=== PATIENT | male | born 1985 | race Caucasian/White ===

== ENCOUNTER 2018-04-19 14:06 | Emergency (ER) | payer BC, OTHER ==
[2018-04-19 14:23] VITALS: BP 131/66; PULSE 84; RESP 16; TEMP 98.6
[2018-04-19] MEDS ORDERED: PROPARACAINE 0.5% OPHTH DROPS 15 ML BTL LEFT EYE STA (14:26)
--- NOTE | 2018-04-19 14:29 | ED ---
General Adult HPI - General Chief complaint: Eye Problems Stated complaint: FB eye Time Seen by Provider: 04/19/18 14:25 Source: patient, RN notes reviewed Mode of arrival: ambulatory Limitations: no limitations - History of Present Illness Initial comments: Patient's 33-year-old male presents emergency room today with a chief complaint possible foreign body to the left eye. He states that last night when he was working he noticed that his left eye began bothering him. Denies any specific injury or trauma. Says feels like something is in the left eye. States had increased watering some swelling to the area. Patient states she started flush alprazolam relief. He denies any other complaints or symptoms. Patient denies any recent fever, chills, shortness of breath, chest pain, back pain, abdominal pain, nausea or vomiting, numbness or tingling, headaches or visual changes, or any other complaints. - Related Data Previous Rx's Medication Instructions Recorded Tobramycin 0.3% Ophth Soln [Tobrex 1 - 2 drop LEFT EYE Q4H 7 Days ml 04/19/18 0.3% Ophth Soln] Allergies Allergy/AdvReac Type Severity Reaction Status Date / Time No Known Allergies Allergy Verified 04/19/18 14:39 Review of Systems ROS Statement: Those systems with pertinent positive or pertinent negative responses have been documented in the HPI. ROS Other: All systems not noted in ROS Statement are negative. Past Medical History Past Medical History: No Reported History History of Any Multi-Drug Resistant Organisms: None Reported Past Surgical History: No Surgical Hx Reported Past Psychological History: No Psychological Hx Reported Smoking Status: Current every day smoker Past Alcohol Use History: Rare Past Drug Use History: None Reported General Exam - General Exam Comments Initial Comments: General: The patient is awake and alert, in no distress, and does not appear acutely ill. Eye: Pupils are equal, round and reactive to light, extra-ocular movements are intact. No nystagmus. Redness erythema to the right I conjunctiva are clear to discharge. Ears, nose, mouth and throat: There are moist mucous membranes and no oral lesions. Neck: The neck is supple, there is no tenderness or JVD. Musculoskeletal: Normal ROM, no tenderness. Strength 5/5. Sensation intact. Pulses equal bilaterally 2+. Neurological: A&O x 3. CN II-XII intact, There are no obvious motor or sensory deficits. Coordination appears grossly intact. Speech is normal. Skin: Skin is warm and dry and no rashes or lesions are noted. Psychiatric: Cooperative, appropriate mood & affect, normal judgment. Limitations: no limitations Course Vital Signs 04/19/18 14:19 Temperature 98.6 F Pulse Rate 84 Respiratory 16 Rate Blood Pressure 131/66 O2 Sat by Pulse 98 Oximetry Procedures - Procedures Initial comment: Patient's left eye was anesthetized locally with proparacaine which to relieve his symptoms. Left eye was then stained with forcing and checked with Wood's lamp revealing a corneal abrasion at the 4 o'clock position. The left eye was then checked with a slit lamp revealing no other foreign bodies and lids were inverted. Disposition Clinical Impression: Corneal abrasion Disposition: HOME SELF-CARE Condition: Good Additional Instructions: Please use antibiotic drops as prescribed and follow-up with doll repairer in 2 days of symptoms have not completely resolved. Please return here to the emergency room for any other concerns. Prescriptions: Tobramycin 0.3% Ophth Soln [Tobrex 0.3% Ophth Soln] 1 - 2 drop LEFT EYE Q4H 7 Days ml Is patient prescribed a controlled substance at d/c from ED?: No Referrals: Louis Sams MD [Primary Care Provider] - 1-2 days Chevy Heart MD [STAFF PHYSICIAN] - 1-2 days Time of Disposition: 14:43
== END 2018-04-19 15:00 | disposition home or self-care (01) ==
LOC: EC 14:06
DX: S05.02XA Injury of conjunctiva and corneal abrasion without foreign body, left eye, initial encounter (principal); F17.200 Nicotine dependence, unspecified, uncomplicated; X58.XXXA Exposure to other specified factors, initial encounter
CPT/HCPCS: 99283

== ENCOUNTER 2019-12-19 12:23 | Emergency (ER) | payer BC ==
[2019-12-19] MEDS ORDERED: PENICILLIN V POTASSIUM 250 MG TAB PO STA (12:44)
--- NOTE | 2019-12-19 12:48 | ED ---
ENT HPI - General Chief complaint: Dental/Oral Stated complaint: Oral Pain Time Seen by Provider: 12/19/19 12:37 Source: patient Mode of arrival: ambulatory Limitations: no limitations - History of Present Illness Initial comments: Patient is a 34-year-old male presenting to emergency Department with complaints of left sided facial swelling 3 days. Patient states he's been having some minor tooth pain on the lower left side. Patient states he then noticed some swelling developing. He denies any fever, chills, vomiting, headache. He states he has not been to the dentist since he is was 8 years old. He denies any trauma to the area. He has no other complaints at this time. Upon arrival to the ER, patient's vital signs are stable, afebrile. - Related Data Previous Rx's Medication Instructions Recorded Tobramycin 0.3% Ophth Soln [Tobrex 1 - 2 drop LEFT EYE Q4H 7 Days ml 04/19/18 0.3% Ophth Soln] Penicillin V Potassium [Pen Vee K] 500 mg PO QID 7 Days #28 tablet 12/19/19 Allergies Allergy/AdvReac Type Severity Reaction Status Date / Time No Known Allergies Allergy Verified 12/19/19 12:36 Review of Systems ROS Statement: Those systems with pertinent positive or pertinent negative responses have been documented in the HPI. ROS Other: All systems not noted in ROS Statement are negative. Past Medical History Past Medical History: No Reported History History of Any Multi-Drug Resistant Organisms: None Reported Past Surgical History: No Surgical Hx Reported Past Psychological History: No Psychological Hx Reported Smoking Status: Current every day smoker Past Alcohol Use History: Rare Past Drug Use History: None Reported General Exam - General Exam Comments Initial Comments: GENERAL: Well-appearing, well-nourished and in no acute distress. HEAD: Atraumatic, normocephalic. EYES: Pupils equal round and reactive to light, extraocular movements intact, sclera anicteric, conjunctiva are normal. ENT: TMs normal, nares patent, oropharynx clear without exudates. Moist mucous membranes. Patient has multiple dental caries and tooth fractures throughout his mouth. He has mild pain with palpation of the left lower gumline. There is no obvious abscess. NECK: Normal range of motion, supple without lymphadenopathy or JVD. LUNGS: Breath sounds clear to auscultation bilaterally and equal. No wheezes rales or rhonchi. HEART: Regular rate and rhythm without murmurs, rubs or gallops. ABDOMEN: Soft, nontender, normoactive bowel sounds. No guarding, no rebound. No masses appreciated. EXTREMITIES: Normal range of motion, no pitting or edema. No clubbing or cyanosis. NEUROLOGICAL: Normal speech, normal gait. PSYCH: Normal mood, normal affect. SKIN: Warm, Dry, normal turgor, no rashes or lesions noted. Limitations: no limitations Course Vital Signs 12/19/19 12/19/19 12:34 13:28 Temperature 98.8 F 98.9 F Pulse Rate 87 70 Respiratory 18 17 Rate Blood Pressure 126/73 124/78 O2 Sat by Pulse 98 100 Oximetry Medical Decision Making - Medical Decision Making Patient is a 34-year-old male presenting with left sided jaw swelling 3 days. On exam patient has multiple dental caries and tooth fractures, mild tenderness of the left lower gumline. There is no obvious abscess to drain. His vital signs are stable, afebrile. Patient will be started on penicillin VK for possible dental abscess. He will follow up with dentist. Strict return parameters were discussed with the patient he verbalizes understanding. First dose of antibiotic will be given the ER. Patient is agreement with this plan of care. Disposition Clinical Impression: Dental caries, Fracture of tooth, Dental abscess Disposition: HOME SELF-CARE Condition: Stable Instructions (If sedation given, give patient instructions): Dental Abscess (ED) Additional Instructions: Please return to the Emergency Department if symptoms worsen or any other concerns. Take antibiotic as prescribed. Follow-up with dentist. Prescriptions: Penicillin V Potassium [Pen Vee K] 500 mg PO QID 7 Days #28 tablet Is patient prescribed a controlled substance at d/c from ED?: No Referrals: None,Stated [Primary Care Provider] - 1-2 days
[2019-12-19 13:29] VITALS: BP 124/78; PULSE 70; RESP 17; TEMP 98.9
== END 2019-12-19 13:28 | disposition home or self-care (01) ==
LOC: EC 12:23
DX: K04.7 Periapical abscess without sinus (principal); S02.5XXA Fracture of tooth (traumatic), initial encounter for closed fracture; K02.9 Dental caries, unspecified; F17.200 Nicotine dependence, unspecified, uncomplicated; X58.XXXA Exposure to other specified factors, initial encounter
CPT/HCPCS: 99283

== ENCOUNTER → 2020-09-13 | Outpatient (CLI) | payer BC | END | disposition home or self-care (01) | LOC: LABWHC1 08:03 | PROVIDERS: ATTEND Emergency Medicine | DX: Z20.828 Contact with and (suspected) exposure to other viral communicable diseases (principal) | CPT/HCPCS: U0003; C9803 ==